=== PATIENT | female | born 1955 | race Caucasian/White ===

== ENCOUNTER 2016-04-05 12:40 | Emergency (ER) | payer OTHER ==
[~2016-04-05] VITALS: Ht 152.4 cm; Wt 113.6 kg
[~2016-04-05 12:40] MED LIST: ALLEGRA-D 24HOU1 T24; ALLERGY RELIEF10 M1 PO; ARTIFICIAL TEAR1 OI1 OP; CIPRO500 MG PO; FLAGYL500 MG PO; FUROSEMIDE PO; IBU800 M1 PO; IBUPROFEN200 M2 PO; K-DUR20 MEQ PO; LASIX 20MG TABL20 MG PO; LASIX 40MG TABL40 MG; MOTRIN 800800 MG/TAB PO; NORCO 325 MG-51 TAB PO; NORCO 325 MG-7.1 TAB PO; PEPCID 20MG TAB20 MG; PRED FORTE 1 ML1 ML OP; PRED FORTE OD; PRILOSEC 20MG20 MG PO; RYBIX ODT50 MG PO; TAMIFLU 75MG75 MG PO; TYLENOL 500MG500 MG PO; [UNRECOGNIZED DRUG - OTHER] OD; [UNRECOGNIZED DRUG - OTHER] PO
[2016-04-05 12:50] VITALS: BP 124/69; TEMP 97.9
[2016-04-05] MEDS ORDERED: NORCO 325 MG-51 TAB PO (13:54)
[2016-04-05 14:11] VITALS: PULSE 80
== END 2016-04-05 14:12 | disposition home or self-care (01) ==
LOC: COL.ER 12:40
DX: S29.012A Strain of muscle and tendon of back wall of thorax, initial encounter (principal); S39.012A Strain of muscle, fascia and tendon of lower back, initial encounter; M25.562 Pain in left knee; V49.49XA Driver injured in collision with other motor vehicles in traffic accident, initial encounter; Y92.488 Other paved roadways as the place of occurrence of the external cause

== ENCOUNTER → 2017-07-31 | Outpatient (CLI) | payer BC | LOC: MC.RAD 09:55 | DX: Z12.31 Encounter for screening mammogram for malignant neoplasm of breast (principal) ==

== ENCOUNTER → 2017-12-25 | Outpatient (CLI) | payer BC, OTHER | LOC: EDBD 13:29 → MHCPAIN 13:29 | DX: G89.29 Other chronic pain (principal); M47.817 Spondylosis without myelopathy or radiculopathy, lumbosacral region; M54.16 Radiculopathy, lumbar region; M53.3 Sacrococcygeal disorders, not elsewhere classified | CPT/HCPCS: G0463 ==

== ENCOUNTER 2018-02-01 13:00 | Outpatient (RCR) | payer BC | END 2018-03-07 08:32 | disposition home or self-care (01) | LOC: WSC 13:00 | DX: M54.16 Radiculopathy, lumbar region (principal); M47.817 Spondylosis without myelopathy or radiculopathy, lumbosacral region; M53.3 Sacrococcygeal disorders, not elsewhere classified; M25.551 Pain in right hip; G89.29 Other chronic pain ==

== ENCOUNTER 2018-03-05 14:18 | Inpatient (IN) | payer BC ==
[~2018-03-05] VITALS: Ht 152.4 cm; Wt 108.6 kg
[~2018-03-05 14:18] MED LIST changes: -RYBIX ODT50 MG PO; +ULTRAM 50MG TAB50 MG PO
[2018-04-15] VITALS (9 sets, daily range): BP systolic 90–131; BP diastolic 40–76; PULSE 54–76; TEMP 97.5–98.6
--- NOTE | 2018-04-15 11:15 | NUR ---
PATIENT BACK IN ROOM 329 POST OP RTH. A&O. VSS. DENIES PAIN. PATIENT IS UBALE TO MOVE BLE. NOTED FEELING/SENSATION AT T12. RTH DRESSING IS CD&I WITH AQUACEL AND ICE PACK INPLACE. TEDS & SCD'S TO BLE. POSITIVE PEDAL PULSES TO BLE. MCGEE TO DEPENDENT DRAINAGE WITH SMALL AMOUNTS OF CLEAR YELLOW URINE NOTED. IV FLUIDS INFUSING VIA PUMP INTO LEFT HAND IV. HEAD TO TOE ASSESSMENT WNL. ORIENTED TO ROOM. CALL LIGHT IN REACH. SON AT BEDSIDE.
--- NOTE | 2018-04-15 13:19 | NUR ---
LINDSAY met with patient and son about discharge planning. Patient lives independently at home by herself but her son lives close by. Patient's PCP is Dr Leija and she obtains prescriptions from [facility]. Patient does not use any home health and she does have a walker but only uses it when needed. LINDSAY inquired about post acute rehab. Patient reports she has already arranged to go to [facility] for post acute rehab and private pay. LINDSAY confirmed this with Lori at [facility]. LINDSAY will fax referral to [facility].
--- NOTE | 2018-04-15 21:00 | NUR ---
Assessment completed. Patient is A&O x 4. VSS, on room air. Home CPAP at bedside and set up for the evening. Pain controlled with prn Oxycodone and scheduled Tylenol at this time. Aquacell dressing to right hip is CDI with a fresh ice pack applied. Pedal pulses intact. BLE ravinder hose/scds on, ravinder hose readjusted and cut due to cutting into the thighs. Encouraged ankle pumps. Tolerating diet with no c/o nausea. Mays catheter to DD with yellow clear urine draining. IVF infusing with intermittent antibiotic per orders. Up with assist x 2 to dangle on the edge of the bed and then stood at the bedside with with walker, patient took a few steps and then requested to go back to the bed due to increased pain. Assisted patient back into the bed and repositioned with assist x 2. Bed is in a low position with call light in reach.
[2018-04-16 00:25] VITALS: BP 99/52; PULSE 85; TEMP 98.2
--- NOTE | 2018-04-16 01:00 | NUR ---
Patient c/o lower back hurting, assisted x 2 with repositioning onto left side with a pillow between legs. Patient reported this helped some and requested pain medication.
[2018-04-16 04:00] VITALS: BP 103/76; PULSE 78; TEMP 98.1
--- NOTE | 2018-04-16 05:50 | NUR ---
Patient has rested intermittently through the night. VSS, home CPAP used through the night. Patient has been c/o mid to lower back pain and right hip, prn Oxycodone and scheduled Tylenol given. Aquacell dressing to right hip is CDI with a fresh ice pack applied this morning. Mays catheter remains to DD with yellow clear urine draining. Denies any concerns or needs at this time, call light is within reach.
[2018-04-16 06:03] LABS: HEMOGLOBIN 11.8 g/dl (12.5-16.0)
[2018-04-16 06:08] LABS: HEMATOCRIT 35.1 % (37.0-47.0)
--- NOTE | 2018-04-16 06:30 | NUR ---
Reported on to MARV Frankel.
[2018-04-16 07:00] VITALS: BP 119/46; PULSE 84; TEMP 98.8
--- NOTE | 2018-04-16 07:00 | NUR ---
Shift assessment completed. VSS, pain 10/10 in R leg/hip and lower back "where the spinal was". Got pt up and sitting in the recliner with her feet up. Pt stated the respositioning took some stress off her back. RN d/c IV into INT, no signs of infiltration or redness. Mays cath secured to L inner thigh, clear pale urine, 525mL output. Burke madeline BLE. Last BM was Sunday night, 04/14/18. Passing some flatus. No hunger due to pain, but ate 40% of breakfast. IS and ankle pumps hourly. Call light and personal items within reach. Finance Controller socks on.
--- NOTE | 2018-04-16 08:17 | NUR ---
Administered 2 7.5mg Norcos PO with water.
--- NOTE | 2018-04-16 09:00 | NUR ---
Followed up on pain level, 08/28.
--- NOTE | 2018-04-16 10:12 | NUR ---
Initial visit;Patient thanked Data Integration Architect for looking in on her and offering God's blessings
[2018-04-16 11:30] VITALS: BP 106/52; PULSE 78; TEMP 98.8
--- NOTE | 2018-04-16 11:50 | NUR ---
VSS. Pain at a 08/28. Gave 10mg of oxycodone PO with water. Reported off to MARV Frankel.
[2018-04-16 16:33] VITALS: BP 88/32; PULSE 69; TEMP 98.7
--- NOTE | 2018-04-16 19:48 | NUR ---
Patient is sitting up in the recliner states she feels the best when she is in the recliner due to her back aching when laying in the bed. Assessment completed. Patient is A&O x 4. VSS, on room air. Alternating [place]/Radha for pain control. Aquacell dressing to right hip is CDI with a fresh ice pack applied. Pedal pulses intact. BLE ravinder hose. Tolerating diet with no c/o nausea, reports not having an appetite. Voiding with no difficulities. INT to left hand. Ambulating short distances to the bathroom with walker and assist x one. Son is at bedside. Denies any concerns or needs at this time, call light is within reach.
[2018-04-16 20:10] VITALS: BP 92/40; PULSE 66; TEMP 98.9
[2018-04-17] VITALS (9 sets, daily range): BP systolic 91–129; BP diastolic 30–60; PULSE 58–97; TEMP 97.4–99.3
--- NOTE | 2018-04-17 03:00 | NUR ---
Patient continues to rest in the recliner with home CPAP on. Reports pain is better to right hip/back, has been alternating [place]/Radha for pain control. Denies any needs or concerns at this time, call light remains within reach.
--- NOTE | 2018-04-17 04:46 | NUR ---
Patient ambulated to the bathroom from the recliner and back with standby assist with walker and gait belt, gait steady. Denies any concerns or needs. Assisted with repositioning in the recliner and a fresh ice pack applied to right hip. Pain has been managed with alternating [place]/Radha. Aquacell dressing to right hip remains CDI. Denies any concerns or needs, call light within reach.
--- NOTE | 2018-04-17 06:30 | NUR ---
Reported on to MARV Merlos.
--- NOTE | 2018-04-17 06:59 | NUR ---
REPORT FROM TIRSO FAIR.
--- NOTE | 2018-04-17 07:12 | NUR ---
Administered two [place] 7.5s PO with water. Pain level stated at a 6/10, constant and in her R hip and lower back.
--- NOTE | 2018-04-17 07:15 | NUR ---
Report to MARV Merlos.
--- NOTE | 2018-04-17 07:18 | NUR ---
RN ENTEROSTOMAL STUDENT ALBINA WORKING WITH PATIENT THIS AM.
--- NOTE | 2018-04-17 07:30 | NUR ---
Shift assessment completed. BP 102/30, RN notified and will recheck after she eats breakfast. Ice pack applied to R hip. R hip dressing CDI. Advertising Assistant Manager socks on, call light and personal items within reach.
[2018-04-17 08:10] LABS: HEMATOCRIT 35.9 % (37.0-47.0); HEMOGLOBIN 12.1 g/dl (12.5-16.0)
--- NOTE | 2018-04-17 08:58 | NUR ---
AGREE WITH ASSESSMETNS FROM STUDENT NURSE.
--- NOTE | 2018-04-17 11:15 | NUR ---
Administered 10mg Radha PO with water. Pt rates her pain as 6/10 in her R leg and pelvis. Clean dressing change. Removed aquacel and applied 12 blue steri strips and covered the incision with an airstip. The incision edges were well approximated with no drainage. R leg is very swollen. Reapplied MARCI AUGUSTIN.
--- NOTE | 2018-04-17 11:57 | NUR ---
Reported off to MARV Merlos.
--- NOTE | 2018-04-17 16:03 | NUR ---
knee high MARCI hose placed per orders.
--- NOTE | 2018-04-17 21:00 | NUR ---
PATIENT BACK FROM BATHROOM AND WAS ABLE TO HAVE A LARGE BM. RESTING UP IN BEDSIDE CHAIR WITH LEGS ELEVATED. ICE PACK TO RIGHT HIP. RTH DRESSING IS CD&I WITH AIRSTRIP. KNEE HIGH TEDS TO BLE. SCD'S CURRENTLY OFF. POSITIVE PEDAL PULSES TO BLE. PATIENT EAT/DRINK/VOIDING SUFFICENT AMOUNTS. NO C/O N/V. PM MEDS GIVEN. HEAD TO TOE WNL. NO OTHER NEEDS. CALL LIGHT IN REACH.
[2018-04-18 04:30] VITALS: BP 99/50; PULSE 64; TEMP 98
--- NOTE | 2018-04-19 12:52 | NUR ---
04/18 - Patient will discharge to [facility] today (04/18). SW faxed discharge orders and arranged transportation.
== END 2018-04-18 11:20 | DRG 470 ==
LOC: JCC 04-15 05:06
PROVIDERS: ADMIT Orthopaedic Surgery
PROC: 0SR90JA Replacement of Right Hip Joint with Synthetic Substitute, Uncemented, Open Approach (ICD-10-PCS; principal; 2018-04-15 07:30)
DX: M16.11 Unilateral primary osteoarthritis, right hip (principal); M87.351 Other secondary osteonecrosis, right femur; Z68.42 Body mass index [BMI] 45.0-49.9, adult; E66.01 Morbid (severe) obesity due to excess calories; G47.33 Obstructive sleep apnea (adult) (pediatric)
CPT/HCPCS: A4314; A9284; C1713; C1776; J0690; J2250; J2270; J2704; J7030; J7120

== ENCOUNTER 2018-03-22 13:28 | Outpatient (RCR) | payer BC ==
[~2018-03-22 13:28] MED LIST changes: +RYBIX ODT50 MG PO; -ULTRAM 50MG TAB50 MG PO
== END 2018-04-03 16:40 | disposition home or self-care (01) ==
LOC: WSC 13:28
DX: Z01.818 Encounter for other preprocedural examination (principal); M16.11 Unilateral primary osteoarthritis, right hip

== ENCOUNTER → 2018-04-02 | Outpatient (CLI) | payer BC | LOC: COL.LAB 14:53 | DX: Z01.812 Encounter for preprocedural laboratory examination (principal) ==

== ENCOUNTER 2018-04-21 14:32 | Emergency (ER) | payer BC ==
[~2018-04-21] VITALS: Ht 154.9 cm; Wt 104.5 kg
[~2018-04-21 14:32] MED LIST changes: -RYBIX ODT50 MG PO; +ULTRAM 50MG TAB50 MG PO
[2018-04-21 14:36] VITALS: TEMP 99.1
[2018-04-21] MEDS ORDERED: CELEBREX 200MG200 MG (15:05)
[2018-04-21] MEDS ORDERED: TYLENOL 8 HR (15:05)
[2018-04-21] MEDS ORDERED: NEURONTIN300 MG/CAP (15:06)
[2018-04-21] MEDS ORDERED: FOLIC ACID 40400 MCG (15:06)
[2018-04-21] MEDS ORDERED: FERRETTS I40 MG/15 M (15:07)
[2018-04-21] MEDS ORDERED: ALAVERT10 M1 (15:07)
[2018-04-21] MEDS ORDERED: AZULFIDINE500 MG/TAB (15:08)
[2018-04-21] MEDS ORDERED: VTAMINC250TA (15:08)
[2018-04-21 15:30] LABS: BASO # 0.1 (0.0-0.2); BASO % 1.1 % (0.0-2.0); EOS # 0.4 (0.0-0.7); GRAN # 3.7 (1.4-6.5); GRAN % 66.7 % (42.2-75.2); LYMPH # 0.9 (1.2-3.4); LYMPH % 15.6 % (20.0-51.0); MEAN CELL VOLUME 95 fl (80.0-100.0); MEAN CORPUSCULAR HEMOGLOBIN 31 pg (27.0-31.0); MEAN CORPUSCULAR HGB CONC 33 g/dl (33.0-37.0); MEAN PLATELET VOLUME 9.7 fl (7.4-10.4); MONO # 0.5 (0.1-0.6); MONO % 8.3 % (1.7-9.3); PLATELET COUNT 250 K/mm3 (130-400); RED BLOOD COUNT 3.56 M/mm3 (4.10-5.30); REDCELL DISTRIBUTION WIDTH-CV 12.1 % (11.5-14.5)
[2018-04-21 15:32] LABS: HEMATOCRIT 33.8 % (37.0-47.0)
[2018-04-21 15:39] LABS: ALBUMIN 3.1 gm/dL (3.5-5.0); BILIRUBIN,TOTAL 0.2 mg/dL (0.0-1.0); CALCIUM 8.5 mg/dL (8.4-10.2); CREATININE, serum 0.63 mg/dL (0.52-1.25); POTASSIUM 3.6 mmol/L (3.4-5.0); TOTAL PROTEIN 5.9 gm/dL (6.4-8.2)
[2018-04-21 18:18] VITALS: BP 120/50; PULSE 64
== END 2018-04-21 18:20 | disposition home or self-care (01) ==
LOC: COL.ER 14:32
PROVIDERS: Emergency Medicine
DX: R60.0 Localized edema (principal); K21.9 Gastro-esophageal reflux disease without esophagitis

== ENCOUNTER → 2018-09-03 | Outpatient (RCR) | payer BC ==
[~2018-09-03] MED LIST changes: +ALAVERT10 M1; +AZULFIDINE500 MG/TAB; +CELEBREX 200MG200 MG; +FERRETTS I40 MG/15 M; +FOLIC ACID 40400 MCG; +NEURONTIN300 MG/CAP; +TYLENOL 8 HR; +VTAMINC250TA
== END | disposition home or self-care (01) ==
LOC: WSPT → WSC 06-05 13:00 → WSPT 06-19 12:45 → WSC 06-21 15:15 → WSPT 06-25 15:30 → WSC 07-25 16:30 → WSPT 07-30 15:45
DX: M25.559 Pain in unspecified hip (principal); M19.90 Unspecified osteoarthritis, unspecified site

== ENCOUNTER 2018-09-17 13:41 | Outpatient (RCR) | payer BC | END 2018-09-26 15:03 | disposition home or self-care (01) | LOC: WSPT 13:41 | DX: M19.90 Unspecified osteoarthritis, unspecified site (principal); R26.2 Difficulty in walking, not elsewhere classified; Z90.49 Acquired absence of other specified parts of digestive tract; Z90.710 Acquired absence of both cervix and uterus; Z96.641 Presence of right artificial hip joint ==

== ENCOUNTER → 2019-09-19 | Outpatient (CLI) | payer BC ==
[~2019-09-19] MED LIST changes: +CIPRO 500MG TA500 MG PO
== END ==
LOC: MC.RAD 09-18 08:00
DX: Z12.31 Encounter for screening mammogram for malignant neoplasm of breast (principal)

== ENCOUNTER 2020-09-13 14:26 | Inpatient (IN) | payer MEDICARE, BC ==
[~2020-09-13] VITALS: Ht 152.4 cm; Wt 117.3 kg
[2020-09-13 15:23] LABS: BASO % 0.1 % (0.0-2.0); GRAN # 15.9 (1.4-6.5); GRAN % 87.8 % (42.2-75.2); HEMATOCRIT 40.5 % (37.0-47.0); LYMPH # 0.6 (1.2-3.4); LYMPH % 3.4 % (20.0-51.0); MEAN CELL VOLUME 91 fl (80.0-100.0); MEAN CORPUSCULAR HEMOGLOBIN 29 pg (27.0-31.0); MEAN CORPUSCULAR HGB CONC 32 g/dl (33.0-37.0); MEAN PLATELET VOLUME 10.5 fl (7.4-10.4); MONO # 1.5 (0.1-0.6); PLATELET COUNT 212 K/mm3 (130-400); RED BLOOD COUNT 4.47 M/mm3 (4.10-5.30); REDCELL DISTRIBUTION WIDTH-CV 12.9 % (11.5-14.5)
[2020-09-13 15:38] LABS: ALANINE AMINOTRANSFERASE 49 U/L (4-34); ALKALINE PHOSPHATASE 85 U/L (50-136); ANION GAP 9 mmol/L (7-16); AST,SGOT 63 U/L (15-37); BILIRUBIN,TOTAL 0.8 mg/dL (0.0-1.0); BLOOD UREA NITROGEN 17 mg/dL (7-17); CALCIUM 9.2 mg/dL (8.4-10.2); CARBON DIOXIDE 24 mmol/L (22-30); CHLORIDE 105 mmol/L (98-107); CREATININE, serum 0.59 (0.52-1.25); GLUCOSE 119 mg/dL (74-106); POTASSIUM 3.6 mmol/L (3.4-5.0); SODIUM 138 mmol/L (137-145); TOTAL PROTEIN 7.3 gm/dL (6.4-8.2)
[2020-09-13 15:42] LABS: ALCOHOL(ethanol),MEDICAL < 10 mg/dL
[2020-09-13 15:57] LABS: ARTERIAL BLD GAS TCO2 CT 23.7; ARTERIAL BLOOD GAS BASE EXCESS -0.2 (-2-2); ARTERIAL BLOOD GAS HCO3 22.7 meq/L (22-26); ARTERIAL BLOOD GAS PCO2 32.4 mmHg (35-45); ARTERIAL BLOOD GAS PO2 67.4 mmHg (80-100); ARTERIAL BLOOD GAS pH 7.46 (7.35-7.45)
[2020-09-13 17:28] LABS: GLUCOSE,CSF < 20 mg/dL (40-70)
[2020-09-13 17:30] LABS: CSF MONONUCLEAR 29 % (70-100); CSF POLYMORPHONUCLEAR 71 % (0-6); CSF RBC 0 /mm3 (0-0)
[2020-09-13 17:33] LABS: CSF APPEARANCE HAZY; CSF COLOR COLORLESS
[2020-09-13 18:44] LABS: Fluid Type Synovial (())
[2020-09-13 20:33] VITALS: BP 102/54; PULSE 48; TEMP 98.5
[2020-09-13] MEDS ORDERED: AMOXICILLIN 8751 TAB PO (20:44)
[2020-09-13] MEDS ORDERED: ZOFRAN ODT4 MG PO (20:45)
[2020-09-13 23:49] VITALS: BP 122/52; PULSE 47; TEMP 97.7
[2020-09-14 05:39] VITALS: BP 138/58; PULSE 63; TEMP 99.9
--- NOTE | 2020-09-14 06:11 | NUR ---
Pt able to answer orientation questions during shift, incomprehensible and/or inappropriate speech noted. Pt confused on why they are here and needed re-orienting to using the call light during the night. Pt free from injury this shift. Pt placed on potassium protocol with replacement due to low potassium value. Pt received IV antibiotics to manage infection. Pt's temperature mildly elevated this AM, managed with prn tylenol. Pt complained of pain 7/10 in head, back, and spine, managed with prn tylenol per orders. Pt's son visited earlier in the shift, updated on plan of care and visiting hours.
[2020-09-14 06:35] LABS: COLLECTION METHOD CLEAN CATCH
[2020-09-14 06:39] LABS: BASO % 0.2 % (0.0-2.0); GRAN # 11.6 (1.4-6.5); GRAN % 88.4 % (42.2-75.2); HEMATOCRIT 41.4 % (37.0-47.0); HEMOGLOBIN 13.3 g/dl (12.5-16.0); LYMPH # 0.5 (1.2-3.4); MEAN CELL VOLUME 91 fl (80.0-100.0); MEAN CORPUSCULAR HEMOGLOBIN 29 pg (27.0-31.0); MEAN CORPUSCULAR HGB CONC 32 g/dl (33.0-37.0); MEAN PLATELET VOLUME 11.1 fl (7.4-10.4); MONO # 0.9 (0.1-0.6); MONO % 6.5 % (1.7-9.3); PLATELET COUNT 195 K/mm3 (130-400); RED BLOOD COUNT 4.53 M/mm3 (4.10-5.30)
[2020-09-14 06:41] LABS: MUCOUS Present /lpf; PH 6 (5-8); SQUAMOUS EPITHELIAL 0-2 /hpf; URINE APPEARANCE Hazy; URINE BACTERIA None Seen /hpf; URINE BILIRUBIN Negative (NEGATIVE); URINE BLOOD Negative (NEGATIVE); URINE COLOR Yellow; URINE GLUCOSE Negative (NEGATIVE); URINE KETONE 2+ (NEGATIVE); URINE LEUKOCYTE ESTERASE Negative (NEGATIVE); URINE NITRATE Negative (NEGATIVE); URINE PROTEIN(semi-quant) 2+ (NEGATIVE)
[2020-09-14 06:50] LABS: TRICYCLIC ANTIDEPRESS URINE NEGATIVE
[2020-09-14 06:55] LABS: CALCIUM 8.9 mg/dL (8.4-10.2); CREATININE, serum 0.61 (0.52-1.25)
[2020-09-14 07:41] VITALS: BP 122/55; PULSE 57; TEMP 98.8
--- NOTE | 2020-09-14 10:52 | NUR ---
The patient is in droplet isolation, due to bacterial meningitis. LINDSAY contacted the patient's room phone to discuss discharge plan. The patient's son, Andre (ph#[phone]), answered the phone. LINDSAY completed the intake with Andre. The patient lives alone in [place]. Andre also lives in [place]. He reports that the patient has been independent with ADLs and has a cane. The patient's PCP is Dr. Hien Leija and she receives her medications from [facility]. He reports no difficulties obtaining her meds. The patient does not have a DPOA-HC completed. Andre reports that the patient would be interested in obtaining a form. LINDSAY to collaborate with the patient's RN to provide the patient with a form. Andre reports that the patient is not and that she has four children: himself, Magen (ph#[phone]), Satish, and Darrell. Andre reports that the plan is for the patient to return back home or stay with him upon discharge, depending on how she does. LINDSAY asked the PA for PT/OT to be ordered. SW to continue to follow. *Discharge plan: home vs home with son. Awaiting therapy's recs*
--- NOTE | 2020-09-14 11:06 | NUR ---
PT RESTING IN RECLINER, DROWSY AND HAS TORUBLE STAYING AWAKE. MORNING MEDICATIONS GIVEN. IV PATENT WITH NS AND VANCOMYCIN RUNNING. PT HAS 2+ EDEMA NOTED TO BLE. PT COMPLAINS OF MILD BACK PAIN. CALL LIGHT WITHIN REACH. WILL CONTINUE TO MONITOR.
[2020-09-14 11:44] VITALS: BP 139/62; PULSE 51; TEMP 98.9
[2020-09-14 16:00] VITALS: BP 119/70; PULSE 71; TEMP 97.7
[2020-09-14 20:43] VITALS: BP 117/58; PULSE 64; TEMP 98.5
--- NOTE | 2020-09-14 22:35 | NUR ---
Pt alert and oriented. Pt able to recall events prior to hospitalization and who brought her. Pt ambulate to shower for full shower, gown change, oral care, and hair care. Shower provided by [employer]. Oral care performed independently. Full linen change completed. Pt gait was weak and pt states "I'm so shaky lately." Pt educated on the effects of not ambulating for extended periods of time. Pt had bruising on her buttocks bilaterally, pt states "probably from my fall" prior to hospitalization. Pt's IV sites flushed, no signs of phlebitis or infiltration noted. Pt's left antecubital IV had old drainage, no leakage noted when flushed. Pt's call light and phone placed at bedside.
[2020-09-14 23:24] VITALS: BP 137/61; PULSE 57; TEMP 97.4
[2020-09-15] VITALS (7 sets, daily range): BP systolic 92–128; BP diastolic 48–77; PULSE 40–55; TEMP 97.7–98.1
--- NOTE | 2020-09-15 02:32 | NUR ---
Pt ambulated to bathroom, SBA. Pt tolerated well. Pt missed hat placed in toilet, unable to obtain accurrate output value at this time. Pt independent in pericare and hand washing.
--- NOTE | 2020-09-15 04:08 | NUR ---
Pt HR low at 48bpm, rechecked and HR now at 51bpm. Pt currently sleeping.
--- NOTE | 2020-09-15 04:25 | NUR ---
Pt alert and oriented this shift. Pt able to ambulate for bathroom privileges and participate in hygiene. Pt receiving IV antibiotics and antiviral medications per orders for infection management. Pt remained afebrile this shift. Pt had headache and back pain this shift, managed with prn tylenol per orders. Pt continuing on potassium protocol, no replacement needed this shift. Pt complained of cough and was prescribed cough drops prn. Pt also prescribed bowel regimen this shift. Refused 0230 Colace in preference for 0900. Neuro checks q2 observed. Pt free from injury this shift.
[2020-09-15 06:59] LABS: HEMATOCRIT 40.6 % (37.0-47.0); HEMOGLOBIN 13.1 g/dl (12.5-16.0); MEAN CELL VOLUME 93 fl (80.0-100.0); MEAN CORPUSCULAR HEMOGLOBIN 30 pg (27.0-31.0); MEAN CORPUSCULAR HGB CONC 32 g/dl (33.0-37.0); MEAN PLATELET VOLUME 11.1 fl (7.4-10.4); PLATELET COUNT 234 K/mm3 (130-400); RED BLOOD COUNT 4.38 M/mm3 (4.10-5.30); REDCELL DISTRIBUTION WIDTH-CV 13.1 % (11.5-14.5)
[2020-09-15 07:23] LABS: CALCIUM 8.6 mg/dL (8.4-10.2); CREATININE, serum 0.59 (0.52-1.25); POTASSIUM 3.9 mmol/L (3.4-5.0)
--- NOTE | 2020-09-15 07:24 | NUR ---
Bedside shift report complete. Pt resting in bed, reports needs have been met. Lights turned off per pt. request. Call light in reach. Contact and droplet precautions maintained.
--- NOTE | 2020-09-15 07:35 | NUR ---
store facility technician called to let this RN know pt.'s HR 38. The patient was assessed and she was sleeping. Pt. arousable to speech. No s/s dizziness or light headedness.
[2020-09-15 08:32] LABS: BAND 17 % (0-10); LYMPHOCYTE 6 % (20.0-51.0); NEUTROPHILS 75 % (42.0-75.2); PLATELET ESTIMATE NORMAL (NORMAL)
[2020-09-15 14:54] LABS: HSV 2 DNA PCR QUAL Not Detected (())
--- NOTE | 2020-09-15 19:06 | NUR ---
Pt. progressing w/ plan of care. OOB most of the shift today. Pt reports headache has decreased and only bothers her when she coughs. Son at bedside off and on throughout the day. IV ABX administered per order. New IV placed in R forearm by charge nurse. Pt OOB to the bathroom using walker, voiding. Call light in reach for safety. Report given to MARV Sheridan.
--- NOTE | 2020-09-15 22:53 | NUR ---
Pt alert and oriented this shift. Able to converse freely and recall recent and past events. Pt has steady gait using walker, able to tolerate ambulation to restroom well. Pt has non-productive cough, lung sounds clear upon auscultation. Pt has generalized bruising on upper extremities. Pt has bruising on hip and coccyx from spinal tap and previous fall.
[2020-09-16 04:19] VITALS: BP 129/60; PULSE 45; TEMP 97.8
--- NOTE | 2020-09-16 04:49 | NUR ---
Pt ambulated to bathroom, missed hat for void. Pt tolerated well.
--- NOTE | 2020-09-16 04:55 | NUR ---
Pt alert and oriented this shift. Pt VS remained stable and afebrile, pt able to ambulate for bathroom privileges using walker. Pt complained of burning in IV during 0500 medication administration. No signs of infiltration or phlebitis observed. MILTON Montes De Oca notified of potential PICC line placement in AM. Pt able to converse freely and express needs. Pt free from injury this shift.
--- NOTE | 2020-09-16 05:07 | NUR ---
Pt states "my arms are getting more swollen." Pt arms assessed bilaterally, slight increase in swelling noted. Will continue to monitor and pass on to day shift.
--- NOTE | 2020-09-16 07:11 | NUR ---
Bedside shift report complete. Pt resting in bed w/ CPAP on. Plan for PICC line today.
[2020-09-16 07:47] LABS: HEMATOCRIT 39.7 % (37.0-47.0); HEMOGLOBIN 12.9 g/dl (12.5-16.0); MEAN CELL VOLUME 92 fl (80.0-100.0); MEAN CORPUSCULAR HEMOGLOBIN 30 pg (27.0-31.0); MEAN CORPUSCULAR HGB CONC 33 g/dl (33.0-37.0); PLATELET COUNT 251 K/mm3 (130-400); RED BLOOD COUNT 4.32 M/mm3 (4.10-5.30); REDCELL DISTRIBUTION WIDTH-CV 13.1 % (11.5-14.5)
[2020-09-16 07:50] VITALS: BP 129/58; PULSE 45; TEMP 98
--- NOTE | 2020-09-16 07:55 | NUR ---
This RN went in room to assess patient and replace tele batteries. Pt. was OOB to the bathroom with ALONA Marquez. Pt. alert and looks more awake and energized compared to yesterday. This RN explained to the patient that the plan is for her to get a PICC line. Pt. reports she is discouraged and was hoping to go home. This RN explained to pt. that the PICC line is part of the plan of care with her IV antibiotics and not to get discouraged.
[2020-09-16 08:02] LABS: CALCIUM 8.6 mg/dL (8.4-10.2); CREATININE, serum 0.64 (0.52-1.25); POTASSIUM 4.2 mmol/L (3.4-5.0)
[2020-09-16 08:09] LABS: BAND 7 % (0-10); LYMPHOCYTE 7 % (20.0-51.0); METAMYELOCYTE 2 % (0-0); NEUTROPHILS 83 % (42.0-75.2); PLATELET ESTIMATE NORMAL (NORMAL)
[2020-09-16 12:10] VITALS: BP 111/61; PULSE 50; TEMP 97.4
--- NOTE | 2020-09-16 13:27 | NUR ---
PICC placed by MARV Malcolm and pt. in good spirits. Pt. sitting up OOB in chair eating lunch. IV ABX infusing. Scheduled flonase administered. Pt. denies needs at this time.
[2020-09-16 16:14] VITALS: BP 110/62; PULSE 51; TEMP 97.9
--- NOTE | 2020-09-16 17:09 | NUR ---
Infectious disease physician called this afternoon to check on patient. Plan is for patient to get IV antibiotics daily after discharge. Pt. expressed concerns about where IV ABX willbe given. This RN explained pt. can get outpatient abx at [facility] outpatient clinic. warehouse worker Deborah verbally notified of plan and will see patient tomorrow to discuss future plans. Pt OOB in chair eating dinner. Son at bedside. Needs met. Pt. reports she had a large BM after having constipation for six days.
--- NOTE | 2020-09-16 18:23 | NUR ---
Pt reports burning to LAC where IV was earlier today. This RN attempted to call MILTON Montes De Oca to look for interventions for what to put on burning site. No answer at this time, will report to oncoming RN
[2020-09-16 19:18] VITALS: BP 125/61; PULSE 50; TEMP 97.6
--- NOTE | 2020-09-16 20:00 | NUR ---
Assessment complete. Patient is alert and oriented and able to ambulate with walker and SBA to bathroom; gait is steady. Patient has no complaints of pain and is afebrile at this time. HR is bradycardic with a regular rhythm and lung sounds are clear. Patient has generalized, non-pitting edema which patient states is a chronic issue. IV infusing into right arm PICC line. No new concerns, call light in reach.
[2020-09-17] VITALS (7 sets, daily range): BP systolic 91–149; BP diastolic 48–80; PULSE 51–98; TEMP 97.4–98.2
[2020-09-17 06:32] LABS: HEMATOCRIT 40.1 % (37.0-47.0); HEMOGLOBIN 12.9 g/dl (12.5-16.0); MEAN CELL VOLUME 92 fl (80.0-100.0); MEAN CORPUSCULAR HEMOGLOBIN 30 pg (27.0-31.0); MEAN CORPUSCULAR HGB CONC 32 g/dl (33.0-37.0); MEAN PLATELET VOLUME 10.9 fl (7.4-10.4); PLATELET COUNT 259 K/mm3 (130-400); RED BLOOD COUNT 4.35 M/mm3 (4.10-5.30)
[2020-09-17 06:37] LABS: CALCIUM 8.2 mg/dL (8.4-10.2); CREATININE, serum 0.61 (0.52-1.25); POTASSIUM 4.3 mmol/L (3.4-5.0)
--- NOTE | 2020-09-17 10:30 | NUR ---
ID stated patient to have ceftriaxone 2gms IV q12 hours x9 days. Patient stated she would like to use [facility]. Call made to [facility] for prior auth as patient will need IV ABx after discharge. S/w Carol, she stated pre-determination is not needed for the provided CPT or Jcode. Call ref# [id number].
[2020-09-17] MEDS ORDERED: ROCEPHIN 2GM VIAL21 IV (10:36)
--- NOTE | 2020-09-17 11:00 | NUR ---
ID is recommending IV Rocephin twice a day for 11 more days. LINDSAY collaborated with the clinical team. The patient is to tentatively d/c tomorrow, 09/18. She will receive both doses of the IV antibiotic here tomorrow and start outpatient IV antibiotics on Sunday. LINDSAY contacted the patient's room phone to discuss IV antibiotics in the [facility] vs at home. The patient's son, Andre, was also on the call. The patient reports that she would prefer to receive the antibiotics in the [facility]. Andre was supportive of the patient's decisions and states that he can help transport the patient to and from the [facility]. LINDSAY notified Henrietta commercial director, for auth. Henrietta reports that the patient's [employer] plan does not require auth. LINDSAY contacted and faxed the patient's IV antibiotic Script and information to Marisa in the [facility]. Marisa reports that the patient's appointment time is at 0800 on Sunday. LINDSAY notified the community health planning director. LINDSAY updated the patient and her son, Andre, of the appointment time. The patient and Andre verbalized understanding and were in agreement to the time. LINDSAY read the IM form outloud to the patient. The patient verbalized understanding and gave SW approval to sign the form on her behalf. The patient is to tentatively d/c back home tomorrow, 09/18, and will start outpatient IV antibiotics in the [facility] on Sunday. No additional needs at this time.
--- NOTE | 2020-09-17 23:02 | NUR ---
ALERT AND OX4. DENIES SOA, PAIN OR LIGHTHEADED.PM MEDS GIVEN, REF COLACE HAD 3 BM TODAY. PLAN TO DC TOMORROW TO HOME W ANTIBOTICS. PICC LINE TO RT UPPER ARM FLUSHED W GOOD BLOOD RETURN. CPAP ON FOR HS. POC DISCUSSED. NEEDS MET.
[2020-09-18 03:23] VITALS: BP 112/68; PULSE 72; TEMP 98
--- NOTE | 2020-09-18 04:49 | NUR ---
Rested though the night without incident. Anticipating DC today.
[2020-09-18] MEDS ORDERED: FLONASE NASAL S16 GM NS (07:24)
[2020-09-18 08:27] VITALS: BP 135/65; PULSE 44; TEMP 98.1
[2020-09-18 08:31] LABS: HEMATOCRIT 41.1 % (37.0-47.0); HEMOGLOBIN 13.2 g/dl (12.5-16.0); MEAN CELL VOLUME 91 fl (80.0-100.0); MEAN CORPUSCULAR HEMOGLOBIN 29 pg (27.0-31.0); MEAN CORPUSCULAR HGB CONC 32 g/dl (33.0-37.0); MEAN PLATELET VOLUME 11.5 fl (7.4-10.4); PLATELET COUNT 250 K/mm3 (130-400); RED BLOOD COUNT 4.54 M/mm3 (4.10-5.30); REDCELL DISTRIBUTION WIDTH-CV 12.9 % (11.5-14.5)
[2020-09-18 08:49] LABS: CALCIUM 8.2 mg/dL (8.4-10.2); CREATININE, serum 0.61 (0.52-1.25); POTASSIUM 3.9 mmol/L (3.4-5.0)
--- NOTE | 2020-09-18 08:59 | NUR ---
PT IS READY TO LEAVE; SHE IS ALL PACKED UP. AWAITING DOCTOR AND DISCHARGE ORDERS. NO FURTHER CONCERNS.
[2020-09-18 10:22] LABS: BAND 1 % (0-10); HYPOCHROMIA 1+; LYMPHOCYTE 16 % (20.0-51.0); NEUTROPHILS 77 % (42.0-75.2)
[2020-09-18 10:23] LABS: PLATELET ESTIMATE NORMAL (NORMAL)
--- NOTE | 2020-09-18 13:18 | NUR ---
SON ARRIVED TO TAKE PATIENT HOME, ABX WERE GIVEN EARLY PER APPROVAL OF PHARMACY. THE PATIENT HAS BEEN ESCORTED OUT AT THIS TIME.
[2020-09-26] MEDS ORDERED: HAIRSKINNAILS PO (07:51)
[2020-09-26] MEDS ORDERED: MULTIVITAMIN FO1 CAP PO (07:51)
[2020-09-26] MEDS ORDERED: PROBIOTIC BLEN1 EACH PO (07:52)
== END 2020-09-18 13:00 | disposition home or self-care (01) | DRG 94 ==
LOC: COL.ER 14:26 → MEDICAL 19:08
PROVIDERS: Emergency Medicine; Physician Assistant; Student in an Organized Health Care Education/Training Program; ADMIT Family Medicine
PROC: 009U3ZX Drainage of Spinal Canal, Percutaneous Approach, Diagnostic (ICD-10-PCS; principal; 2020-09-13)
PROC: 02HV33Z Insertion of Infusion Device into Superior Vena Cava, Percutaneous Approach (ICD-10-PCS; 2020-09-16)
DX: G00.1 Pneumococcal meningitis (principal); J96.01 Acute respiratory failure with hypoxia; M79.7 Fibromyalgia; E87.6 Hypokalemia; R00.1 Bradycardia, unspecified; G89.29 Other chronic pain; Z96.641 Presence of right artificial hip joint; G47.33 Obstructive sleep apnea (adult) (pediatric); Z20.822 Contact with and (suspected) exposure to COVID-19; R44.1 Visual hallucinations; Z98.51 Tubal ligation status; Z90.710 Acquired absence of both cervix and uterus
CPT/HCPCS: 99223-AI; 99232-AI; 99233-AI; 99239; C1751; J0133; J0290; J0696; J1100; J1650; J3370; J3480; J7030; J7040; J7050

== ENCOUNTER 2020-09-27 08:00 | Outpatient (RCR) | payer MEDICARE, BC ==
[2020-09-19 09:06] VITALS: BP 120/56; PULSE 53; TEMP 98.2
[2020-09-20 07:55] VITALS: BP 114/71; PULSE 64; TEMP 98.9
[2020-09-21 08:48] VITALS: BP 95/63; PULSE 80; TEMP 99.1
[2020-09-21 18:00] VITALS: BP 118/60; PULSE 87
[2020-09-22 08:46] VITALS: BP 108/50; PULSE 76; TEMP 98.4
[2020-09-22 18:02] VITALS: BP 104/46; PULSE 82
[2020-09-23 07:41] VITALS: BP 89/55; PULSE 78; TEMP 98.7
[2020-09-23 18:12] VITALS: BP 123/81; PULSE 78; TEMP 97.6
[2020-09-24 07:40] VITALS: BP 100/66; PULSE 76; TEMP 98.5
[2020-09-24 19:21] VITALS: BP 99/66; PULSE 78; TEMP 98.2
[2020-09-25 09:48] VITALS: BP 94/65; PULSE 74; TEMP 99.3
[2020-09-26 07:52] VITALS: BP 100/68; PULSE 76; TEMP 99
[~2020-09-27] VITALS: Ht 152.4 cm; Wt 121.9 kg
[2020-09-27 08:00] VITALS: BP 104/73; PULSE 78; TEMP 98.7
[~2020-09-27 08:00] MED LIST changes: +AMOXICILLIN 8751 TAB PO; +FLONASE NASAL S16 GM NS; +HAIRSKINNAILS PO; +MULTIVITAMIN FO1 CAP PO; +PROBIOTIC BLEN1 EACH PO; +ROCEPHIN 2GM VIAL21 IV; +ZOFRAN ODT4 MG PO
[2020-09-27 17:50] VITALS: BP 117/83; PULSE 65; TEMP 98.3
--- NOTE | 2020-09-27 18:21 | NUR ---
PT TO EU FOR ABX AND PICC REMOVAL. PT'S VSS. PICC FLUSHED AND ABX GIVEN PER APR. PICC LINE REMOVED AND DRESSING APPLIED. PT EDUCATED ON SIGN AND SYMPTOMS TO WATCH FOR INFECTION. PT WHEELED OUT TO ER ENTERENCE FOR DISCHARGE.
[2020-09-28] MEDS ORDERED: AMOXICILLIN 8751 TAB PO (10:59)
== END 2020-09-27 18:46 | disposition home or self-care (01) ==
LOC: EUO 08:00
DX: H66.93 Otitis media, unspecified, bilateral (principal); J96.01 Acute respiratory failure with hypoxia; E87.6 Hypokalemia; R00.1 Bradycardia, unspecified; R51.9 Headache, unspecified; M54.2 Cervicalgia; R60.0 Localized edema; Z95.9 Presence of cardiac and vascular implant and graft, unspecified
CPT/HCPCS: J0696

== ENCOUNTER 2020-09-28 08:28 | Emergency (ER) | payer MEDICARE, BC ==
[~2020-09-28] VITALS: Ht 152.4 cm; Wt 113.6 kg
[2020-09-28 08:49] VITALS: TEMP 98.7
[2020-09-28 09:20] LABS: BASO # 0.1 (0.0-0.2); BASO % 0.5 % (0.0-2.0); EOS # 0.1 (0.0-0.7); EOS % 1.2 % (0-4.0); GRAN # 8.6 (1.4-6.5); GRAN % 79.6 % (42.2-75.2); HEMOGLOBIN 13.4 g/dl (12.5-16.0); LYMPH # 0.9 (1.2-3.4); LYMPH % 8.4 % (20.0-51.0); MEAN CELL VOLUME 91 fl (80.0-100.0); MEAN CORPUSCULAR HEMOGLOBIN 30 pg (27.0-31.0); MEAN CORPUSCULAR HGB CONC 33 g/dl (33.0-37.0); MEAN PLATELET VOLUME 9.8 fl (7.4-10.4); MONO % 9.6 % (1.7-9.3); PLATELET COUNT 225 K/mm3 (130-400); RED BLOOD COUNT 4.51 M/mm3 (4.10-5.30); REDCELL DISTRIBUTION WIDTH-CV 13.2 % (11.5-14.5)
[2020-09-28 09:28] LABS: ALBUMIN 3.4 gm/dL (3.5-5.0); BILIRUBIN,TOTAL 0.4 mg/dL (0.0-1.0); CALCIUM 8.6 mg/dL (8.4-10.2); CREATININE, serum 0.52 (0.52-1.25); POTASSIUM 3.6 mmol/L (3.4-5.0)
[2020-09-28 10:54] LABS: COLLECTION METHOD CLEAN CATCH
[2020-09-28] MEDS ORDERED: AMOXICILLIN 8751 TAB PO (10:59)
[2020-09-28 11:02] LABS: MUCOUS Present /lpf; PH 6 (5-8); URINE APPEARANCE Hazy; URINE BACTERIA None Seen /hpf; URINE BILIRUBIN Negative (NEGATIVE); URINE BLOOD Negative (NEGATIVE); URINE COLOR Yellow; URINE GLUCOSE Negative (NEGATIVE); URINE KETONE Negative (NEGATIVE); URINE LEUKOCYTE ESTERASE Negative (NEGATIVE); URINE NITRATE Negative (NEGATIVE); URINE PROTEIN(semi-quant) Negative (NEGATIVE); URINE RBC 0-2 /hpf; URINE UROBILINOGEN Negative (NEGATIVE)
[2020-09-28 11:35] VITALS: BP 116/70; PULSE 65
== END 2020-09-28 11:35 | disposition home or self-care (01) ==
LOC: COL.ER 08:28
PROVIDERS: Emergency Medicine
DX: K57.92 Diverticulitis of intestine, part unspecified, without perforation or abscess without bleeding (principal)
CPT/HCPCS: J7030; Q9967

== ENCOUNTER 2022-07-01 18:54 | Emergency (ER) | payer MEDICARE, BC ==
[~2022-07-01] VITALS: Ht 154.9 cm; Wt 113.6 kg
[2022-07-01 19:01] VITALS: TEMP 99.4
[2022-07-01 19:31] LABS: BASO # 0.1 K/mm3 (0.0-0.2); BASO % 0.6 % (0.0-2.0); EOS # 0.1 K/mm3 (0.0-0.7); EOS % 1.7 % (0.0-4.0); GRAN # 5.8 K/mm3 (1.4-6.5); GRAN % 74.4 % (42.2-75.2); HEMATOCRIT 44.3 % (37.0-47.0); HEMOGLOBIN 14.2 g/dl (12.5-16.0); LYMPH # 1.1 K/mm3 (1.2-3.4); LYMPH % 14.5 % (20.0-51.0); MEAN CELL VOLUME 94 fl (80.0-100.0); MEAN CORPUSCULAR HEMOGLOBIN 30 pg (27-31); MEAN CORPUSCULAR HGB CONC 32 g/dl (33.0-37.0); MEAN PLATELET VOLUME 9.9 fl (7.4-10.4); MONO # 0.7 K/mm3 (0.1-0.6); MONO % 8.5 % (1.7-9.3); PLATELET COUNT 224 K/mm3 (130-400); RED BLOOD COUNT 4.74 M/mm3 (4.10-5.30); REDCELL DISTRIBUTION WIDTH-CV 12.5 % (11.5-14.5)
[2022-07-01 19:48] LABS: ALBUMIN 3.7 gm/dL (3.4-4.8); BILIRUBIN,TOTAL 0.4 mg/dL (0.2-1.2); CALCIUM 9.4 mg/dL (8.4-10.2); CREATININE, serum 0.76 mg/dL (0.57-1.11); TOTAL PROTEIN 6.6 gm/dL (6.2-8.1)
[2022-07-01] MEDS ORDERED: CEPHALEXIN500 M1 PO (20:31)
[2022-07-01 21:00] VITALS: BP 136/76; PULSE 88
== END 2022-07-01 21:00 | disposition home or self-care (01) ==
LOC: COL.ER 18:54
PROVIDERS: Personal Emergency Response Attendant
DX: R42 Dizziness and giddiness (principal); M79.641 Pain in right hand; M79.89 Other specified soft tissue disorders; G47.30 Sleep apnea, unspecified; Z98.890 Other specified postprocedural states; Z99.89 Dependence on other enabling machines and devices

== ENCOUNTER 2022-10-13 09:45 | Outpatient (RCR) | payer MEDICARE, BC ==
[~2022-10-13 09:45] MED LIST changes: +CEPHALEXIN500 M1 PO
== END 2022-10-19 | disposition home or self-care (01) ==
LOC: MKS.ESL.PT
DX: I89.0 Lymphedema, not elsewhere classified (principal)

== ENCOUNTER 2023-02-16 10:30 | Outpatient (RCR) | payer MEDICARE, BC | END 2023-02-18 | disposition home or self-care (01) | LOC: WSPT | DX: I89.0 Lymphedema, not elsewhere classified (principal) ==

== ENCOUNTER 2023-02-23 09:40 | Outpatient (RCR) | payer MEDICARE, BC | END 2023-03-21 | disposition home or self-care (01) | LOC: WSPT | DX: I89.0 Lymphedema, not elsewhere classified (principal) ==

== ENCOUNTER → 2023-04-17 | Outpatient (CLI) | payer MEDICARE, BC | LOC: MC.RAD 10:15 | DX: Z12.31 Encounter for screening mammogram for malignant neoplasm of breast (principal) ==

== ENCOUNTER 2023-12-04 12:14 | Emergency (ER) | payer MEDICARE, BC ==
[~2023-12-04] VITALS: Ht 154.9 cm; Wt 106.8 kg
[2023-12-04 12:19] VITALS: TEMP 98.1
[2023-12-04 12:41] LABS: BASO # 0.1 K/mm3 (0.0-0.2); BASO % 1.3 % (0.0-2.0); EOS # 0.1 K/mm3 (0.0-0.7); EOS % 1.5 % (0.0-4.0); GRAN # 3.5 K/mm3 (1.4-6.5); GRAN % 65.3 % (42.2-75.2); HEMATOCRIT 47.1 % (37.0-47.0); HEMOGLOBIN 15.8 g/dl (12.5-16.0); LYMPH # 1.2 K/mm3 (1.2-3.4); LYMPH % 21.6 % (20.0-51.0); MEAN CELL VOLUME 91 fl (80.0-100.0); MEAN CORPUSCULAR HEMOGLOBIN 31 pg (27-31); MEAN CORPUSCULAR HGB CONC 34 g/dl (33.0-37.0); MONO # 0.5 K/mm3 (0.1-0.6); MONO % 9.7 % (1.7-9.3); PLATELET COUNT 237 K/mm3 (130-400); RED BLOOD COUNT 5.16 M/mm3 (4.10-5.30); REDCELL DISTRIBUTION WIDTH-CV 12.4 % (11.5-14.5)
[2023-12-04 13:52] LABS: ALANINE AMINOTRANSFERASE 21 U/L (0-55); ALBUMIN 3.9 g/dL (3.4-4.8); ALKALINE PHOSPHATASE 71 U/L (40-150); ANION GAP 11 mmol/L (7-16); AST,SGOT 18 U/L (5-34); BILIRUBIN,TOTAL 0.5 mg/dL (0.2-1.2); BLOOD UREA NITROGEN 20 mg/dL (10-20); CALCIUM 9.5 mg/dL (8.4-10.2); CHLORIDE 108 mEq/L (98-107); CREATININE, serum 0.73 mg/dL (0.57-1.11); GLUCOSE 91 mg/dL (70-99); POTASSIUM 3.9 mEq/L (3.5-4.5); SODIUM 140 mEq/L (136-145); TOTAL PROTEIN 6.7 g/dl (6.2-8.1)
[2023-12-04 13:59] LABS: TROPONIN-I < 0.010 ng/mL (0.00-0.033)
[2023-12-04 14:44] VITALS: BP 150/73; PULSE 51
== END 2023-12-04 14:54 | disposition home or self-care (01) ==
LOC: COL.ER 12:14
PROVIDERS: Physician Assistant
DX: R07.9 Chest pain, unspecified (principal); Z87.39 Personal history of other diseases of the musculoskeletal system and connective tissue